=== PATIENT | female | born 1990 | race American Indian/Alaskan Native ===

== ENCOUNTER 2018-05-06 12:46 | Outpatient (CLI) | payer MEDICAID ==
[2018-05-06 13:44] LABS: Bilirubin,Urine NEG (Negative); Blood,Urine NEG (Negative); Color,Urine Yellow (Yellow); Mucus,Urine 1+ /HPF
[2018-05-06] MEDS ORDERED: LACTATED RINGERS 1,000 ML IV ONE ×2 (13:54→15:57)
[2018-05-06] MEDS ORDERED: BRETHINE SUB-Q ONE (14:57)
[2018-05-06 16:32] VITALS: BP 121/57
== END 2018-05-06 17:38 | disposition home or self-care (01) ==
LOC: TRG 12:46
PROVIDERS: ATTEND Obstetrics & Gynecology
DX: O47.03 False labor before 37 completed weeks of gestation, third trimester (principal); Z3A.34 34 weeks gestation of pregnancy
CPT/HCPCS: 59025; 81001; 96360; 96361; J7120

== ENCOUNTER 2018-05-27 07:47 | Outpatient (CLI) | payer MEDICAID ==
[2018-05-27 08:45] VITALS: BP 116/66
== END 2018-05-27 11:49 | disposition home or self-care (01) ==
LOC: TRG 07:47
PROVIDERS: ATTEND Obstetrics & Gynecology
DX: O47.03 False labor before 37 completed weeks of gestation, third trimester (principal); Z3A.37 37 weeks gestation of pregnancy
CPT/HCPCS: 59025

== ENCOUNTER 2018-06-03 16:10 | Inpatient (IN) | payer MEDICAID ==
[2018-06-03 14:04] LABS: Hematocrit 29.7 % (30.3-42.9); Hemoglobin 9.5 gm/dl (10.1-14.3); Mean Corpuscular HGB Conc 32 % (30-34); Platelet Count 253 K/mm3 (140-440); Red Blood Count 4.37 M/mm3 (3.65-5.03); Red Cell Distribution Width 17.7 % (13.2-15.2)
[2018-06-03 14:05] LABS: Mean Corpuscular Hemoglobin 22 pg (28-32); Mean Corpuscular Volume 68 fl (79-97)
[2018-06-03 15:38] LABS: Amphetamine Screen,Urine PRESUMPTIVE NEGATIVE; Benzodiazepines Screen,Urine PRESUMPTIVE NEGATIVE; Cannabinoid Screen,Urine PRESUMPTIVE NEGATIVE; Cocaine Screen,Urine PRESUMPTIVE NEGATIVE; Methadone Screen,Urine PRESUMPTIVE NEGATIVE; Opiate Screen,Urine PRESUMPTIVE NEGATIVE
[~2018-06-03 16:10] MED LIST: LACTATED RINGERS 1,000 ML IV ONE; LACTATED RINGERS 1,000 ML ONE; TYLENOL PO ONE
[2018-06-03] MEDS ORDERED: BENADRYL PO PRN (20:39)
[2018-06-03] MEDS ORDERED: ZOFRAN IV PRN (20:39)
[2018-06-03] MEDS ORDERED: DEEP SEA NS PRN (20:39)
[2018-06-03] MEDS ORDERED: COLACE PO PRN (20:39)
[2018-06-03] MEDS ORDERED: TYLENOL PO PRN (20:39)
[2018-06-03 21:01] LABS: Bacteria,Urine 1+ /HPF (Negative); Bilirubin,Urine NEG (Negative); Blood,Urine NEG (Negative); Color,Urine Yellow (Yellow); Mucus,Urine FEW /HPF; Protein,Urine <15 mg/dL mg/dL (Negative)
[2018-06-03] MEDS ORDERED: LACTATED RINGERS 1,000 ML IV SCH (22:00)
--- NOTE | 2018-06-03 22:33 | Ultrasound Report ---
FINAL REPORT PROCEDURE: US OB FOLLOW UP TECHNIQUE: Real-time transabdominal sonography of the uterus, placenta, amniotic fluid, adnexa, and fetus was performed with image documentation. Measurements were obtained to determine age/size. M-mode Doppler was used to document heartbeat. HISTORY: IUP at 38 wks, fever COMPARISON: No prior studies are available for comparison. FINDINGS: GENERAL: IUP: Single living intrauterine . Position: Cephalic Placental position: Anterior, without previa. Amniotic fluid volume: Normal. MATERNAL: Uterus: Within normal limits. FETUS: Heart rate and rhythm: 153 BPM, regular. MEASUREMENTS: BPD: 9.1 cm, 36 weeks 6 days HC: 33.6 cm, 38 weeks 3 days AC: 34.5 cm, 38 weeks 3 days FL: 7.1 cm, 36 weeks 3 days. Mean Gestational Age (composite criteria): 37 weeks 4 days Estimated Weight: 3309 grams. Estimated Due Date : June 20, 2018 IMPRESSION: Single intrauterine gestation at 37 weeks 4 days. Estimated due date: June 20, 2018.
--- NOTE | 2018-06-03 22:34 | Ultrasound Report ---
FINAL REPORT PROCEDURE: US OB BPP WO NON-STRESS TECHNIQUE: Sonographic evaluation for breathing, movement, tone, and amniotic fluid volume was performed. CPT 61328 HISTORY: IUP at 38 wks, well being, COMPARISON: No prior studies are available for comparison. FINDINGS: Amniotic fluid volume: Normal-score 2. At least one vertical pocket > 2 cm or more in vertical axis. breathing: Normal-score 2. movement: Normal-score 2. tone: Normal. Score: 8 of 8. IMPRESSION: Normal biophysical profile.
[2018-06-04] MEDS ORDERED: DIFLUCAN PO ONE (06:10)
--- NOTE | 2018-06-04 07:12 | History and Physical Report ---
History of Present Illness Date of examination: 06/04/18 Date of admission: 06/03/18 20:40 History of present illness: 27 yo LMP EDC 06/13/18 @ 38.5 weeks gestation presented to triage with c/o fever and chills at home. Voiced good FM, denies vaginal bleeding, abd pain, recent illness or sickness in household or LOF. On admit was noted to have maternal fever of 101.6 with tachycardia of 180's with moderate variability. CBC with WBC 13.9, urine drug screen and dip negative. IV hydration and tylenol given. Fever and tachycardia resolved. MD consulted and additional orders given including 23hr OB, chest X-ray, and blood cultures. First trimester entry into care at 12 weeks. course complicated by eczema with topical steroids, +BV with treatment, ecoli UTI with macrobid 100mg BID with negative ANASTASIA and limited anatomical survey with repeat scan WNL. GBS positive. Has remained afebrile and category 1 tracing throughout night and this am. Experiencing irregular contractions. SVE per RN. /70/-3, GBS positive. 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: abnormal PAP smear (03/2012 with high risk HPV) Family/Genetic History: diabetes, hypertension Social history: lives with family - Obstetrical History Expected Date of Delivery: 06/13/18 Actual Gestation: 38 Week(s) 5 Day(s) : 2 Para: 1 (41 week 2011 6-10oz female) Medications and Allergies Allergies Allergy/AdvReac Type Severity Reaction Status Date / Time No Known Allergies Allergy Unverified 05/06/18 12:53 Home Medications Medication Instructions Recorded Confirmed Last Taken Type Ferrous Sulfate [Feosol 325 MG tab] 1 tab PO BID 05/06/18 06/04/18 05/05/18 History Pnv No.95/Ferrous Fum/Folic AC 1 each PO DAILY 05/06/18 06/04/18 05/05/18 History [Prenavite Tablet] Active Meds: Active Medications Acetaminophen (Tylenol) 650 mg PO Q4H PRN PRN Reason: Pain MILD(1-3)/Fever >100.5/WAGNER Last Admin: 06/04/18 01:48 Dose: 650 mg Diphenhydramine HCl (Benadryl) 25 mg PO Q6H PRN PRN Reason: Itching Docusate Sodium (Colace) 100 mg PO Q12H PRN PRN Reason: Constipation Lactated Ringer's (Lactated Ringers) 1,000 mls @ 125 mls/hr IV DIRECT RAIZA Last Admin: 06/04/18 05:38 Dose: 125 mls/hr Ampicillin Sodium (Polycillin/Ns 2 Gm/100 Ml) 2 gm in 100 mls @ 100 mls/hr IV ONCE RAIZA; Protocol Ampicillin Sodium (Ampicillin/Ns 1 Gm/50 Ml) 1 gm in 50 mls @ 100 mls/hr IV Q4HR [facility]; Protocol Multivitamins/Iron/Calcium ( Vitamin) 1 each PO QDAY [facility] Ondansetron HCl (Zofran) 4 mg IV Q6H PRN PRN Reason: Nausea And Vomiting Sodium Chloride (Deep Sea) 2 spray NS Q4H PRN PRN Reason: Congestion Review of Systems All systems: negative Constitutional: fever, chills, sweats, malaise Gastrointestinal: no abdominal pain Genitourinary: normal appearance, no vaginal bleeding, no leakage of fluid, no genital sores, no contractions Rectal Exam: deferred - Vital Signs Vital signs: Vital Signs Temp Pulse Resp BP Pulse Ox 101.6 F H 122 H 20 105/58 100 06/03/18 13:25 06/03/18 13:25 06/03/18 13:25 06/03/18 13:25 06/03/18 13:25 Temp Pulse Resp BP Pulse Ox 99.8 F H 113 H 18 93/52 99 06/04/18 02:16 06/04/18 02:14 06/04/18 02:16 06/04/18 02:14 06/03/18 14:36 - Physical Exam Breasts: Positive: deferred Abdomen: Positive: normal appearance, soft. Negative: tenderness Vagina: Positive: normal moisture Uterus: Positive: normal size Anus/Rectum: Positive: normal perianal skin - Obstetrical FHR: category 1 Uterine Contraction Monitor Mode: External Cervical Dilatation: 3 (RN) station: -2 Uterine Contraction Frequency (min): 5-10 Uterine Contraction Pattern: Irregular Uterine Tone Measurement Phase: Resting Uterine Contraction Intensity: Mild Results Result Diagrams: 06/03/18 13:30 Abnormal lab results 06/03/18 06/03/18 Range/Units 13:30 20:38 WBC 13.9 H (4.5-11.0) K/mm3 Hgb 9.5 L (10.1-14.3) gm/dl Hct 29.7 L (30.3-42.9) % MCV 68 L (79-97) fl MCH 22 L (28-32) pg RDW 17.7 H (13.2-15.2) % Urine WBC (Auto) 8.0 H (0.0-6.0) /HPF All other labs normal. Assessment and Plan O: recent temp 99.8 A: IUP at term S/P resolved maternal fever and tachycardia Category 1 tracing Anemia GBS positive Active Labor P: MD consult Amp/Gent as ordered Augmentation
[2018-06-04] MEDS ORDERED: GARAMYCIN IV SCH (07:30)
[2018-06-04] MEDS ORDERED: POLYCILLIN/NS 2 GM/100 ML 2 GM/100 ML BAG IV SCH (08:00)
[2018-06-04] MEDS ORDERED: SUBLIMAZE IV PRN (08:00)
[2018-06-04] MEDS ORDERED: STADOL IV PRN (08:00)
[2018-06-04] MEDS ORDERED: PITOCin/NS 30 UNIT/500ML 30 UNITS/500 ML BAG IV SCH (09:30)
[2018-06-04] MEDS: GARAMYCIN/NS 120MG/100ML 120 MG/100 ML BAG IV SCH ×2 (09:40→18:00)
[2018-06-04] MEDS ORDERED: PRENATAL VITAMIN PO SCH (10:00)
[2018-06-04] MEDS ORDERED: TYLENOL PO ONE (10:53)
[2018-06-04] MEDS: AMPICILLIN/NS 1 GM/50 ML 1 GM/50 ML BAG IV SCH ×2 (13:12→16:13)
--- NOTE | 2018-06-04 13:41 | Progress Note ---
Assessment and Plan O: 100.9 @ 1227 Maternal pulse 103 A: IUP at term Category 1 tracing Maternal Temp Latent Labor GBS positive P: Tylenol prn IV bolus Close observation Subjective - Subjective Interval history: 27 yo LMP EDC 06/13/18 @ 38.5 weeks gestation presented to triage with c/o fever and chills at home. Voiced good FM, denies vaginal bleeding, abd pain, recent illness or sickness in household or LOF. On admit was noted to have maternal fever of 101.6 with tachycardia of 180's with moderate variability. CBC with WBC 13.9, urine drug screen and dip negative. IV hydration and tylenol given. Fever and tachycardia resolved. MD consulted and additional orders given including 23hr OB, chest X-ray, and blood cultures. First trimester entry into care at 12 weeks. course complicated by eczema with topical steroids, +BV with treatment, ecoli UTI with macrobid 100mg BID with negative ANASTASIA and limited anatomical survey with repeat scan WNL. GBS positive. Has remained afebrile and category 1 tracing throughout night and this am. Experiencing irregular contractions. SVE per RN. 4/70/-3, GBS positive. Patient reports: movement normal, contractions, no new complaints, no loss of fluid, no vaginal bleeding Objective - Vital Signs Vital Signs: Vital Signs - 12hr 06/04/18 06/04/18 06/04/18 01:48 02:14 02:16 Temperature 99.8 F H Pulse Rate 113 H Respiratory 16 18 Rate Blood Pressure 93/52 O2 Sat by Pulse Oximetry 06/04/18 06/04/18 06/04/18 07:25 07:31 09:53 Temperature 98.6 F Pulse Rate 97 H 96 H Respiratory Rate Blood Pressure 118/72 126/70 O2 Sat by Pulse Oximetry 06/04/18 06/04/18 06/04/18 10:24 10:43 11:10 Temperature 99.9 F H Pulse Rate 111 H 103 H Respiratory Rate Blood Pressure 129/71 O2 Sat by Pulse 99 Oximetry 06/04/18 06/04/18 06/04/18 11:15 11:20 11:23 Temperature Pulse Rate 104 H 112 H 116 H Respiratory Rate Blood Pressure 109/58 O2 Sat by Pulse 100 90 Oximetry 06/04/18 06/04/18 06/04/18 11:25 11:28 11:30 Temperature Pulse Rate 114 H 111 H 104 H Respiratory Rate Blood Pressure O2 Sat by Pulse 100 93 89 Oximetry 06/04/18 06/04/18 06/04/18 11:35 11:40 11:45 Temperature Pulse Rate 114 H 109 H 116 H Respiratory Rate Blood Pressure O2 Sat by Pulse 76 L 100 100 Oximetry 06/04/18 06/04/18 06/04/18 11:50 11:53 11:55 Temperature Pulse Rate 121 H 116 H 120 H Respiratory Rate Blood Pressure 112/59 O2 Sat by Pulse 100 98 Oximetry 06/04/18 06/04/18 06/04/18 12:00 12:05 12:10 Temperature Pulse Rate 111 H 118 H 117 H Respiratory Rate Blood Pressure O2 Sat by Pulse 99 99 99 Oximetry 06/04/18 06/04/18 06/04/18 12:15 12:20 12:23 Temperature Pulse Rate 113 H 99 H 116 H Respiratory Rate Blood Pressure 119/67 O2 Sat by Pulse 99 100 Oximetry 06/04/18 06/04/18 06/04/18 12:25 12:27 12:30 Temperature 100.9 F H Pulse Rate 99 H 103 H Respiratory Rate Blood Pressure O2 Sat by Pulse 99 99 Oximetry 06/04/18 06/04/18 06/04/18 12:35 12:40 12:45 Temperature Pulse Rate 116 H 103 H 104 H Respiratory Rate Blood Pressure O2 Sat by Pulse 99 99 97 Oximetry 06/04/18 06/04/18 06/04/18 12:50 12:53 12:55 Temperature Pulse Rate 132 H 105 H 118 H Respiratory Rate Blood Pressure 120/57 O2 Sat by Pulse 99 100 Oximetry 06/04/18 06/04/18 06/04/18 13:00 13:05 13:10 Temperature Pulse Rate 120 H 105 H 116 H Respiratory Rate Blood Pressure O2 Sat by Pulse 98 98 99 Oximetry 06/04/18 06/04/18 06/04/18 13:15 13:20 13:23 Temperature Pulse Rate 101 H 103 H 86 Respiratory Rate Blood Pressure 128/59 O2 Sat by Pulse 98 97 Oximetry 06/04/18 06/04/18 06/04/18 13:25 13:30 13:35 Temperature Pulse Rate 92 H 89 98 H Respiratory Rate Blood Pressure O2 Sat by Pulse 97 98 99 Oximetry - Exam Breasts: deferred Abdomen: Present: normal appearance, soft. Absent: distention, tenderness FHR: category 2 FHR comments: 160 moderate variability Uterine Contraction Monitor Mode: External Cervical Dilatation: 3 Cervical Effacement Percentage: 50 station: -2 Uterine Contraction Frequency (min): 3 Uterine Contraction Duration: 60-80 Uterine Contraction Pattern: Regular Uterine Tone Measurement Phase: Resting Uterine Contraction Intensity: Strong/Firm Extremities: normal - Labs Labs: Abnormal Labs 06/03/18 06/03/18 13:30 20:38 WBC 13.9 H Hgb 9.5 L Hct 29.7 L MCV 68 L MCH 22 L RDW 17.7 H Urine WBC (Auto) 8.0 H Laboratory Results - last 24 hr 06/03/18 06/03/18 06/03/18 13:30 15:00 20:38 WBC 13.9 H RBC 4.37 Hgb 9.5 L Hct 29.7 L MCV 68 L MCH 22 L MCHC 32 RDW 17.7 H Plt Count 253 Urine Color Yellow Urine Turbidity Slightly-cloudy Urine pH 7.0 Ur Specific [place] 1.017 Urine Protein <15 mg/dl Urine Glucose (UA) Neg Urine Ketones Neg Urine Blood Neg Urine Nitrite Neg Urine Bilirubin Neg Urine Urobilinogen 4.0 Ur Leukocyte Esterase Lg Urine WBC (Auto) 8.0 H Urine RBC (Auto) 5.0 U Epithel Cells (Auto) 4.0 Urine Bacteria (Auto) 1+ Urine Mucus Few Urine Yeast (Budding) Few Urine Opiates Screen Presumptive negative Urine Methadone Screen Presumptive negative Ur Barbiturates Screen Presumptive negative Ur Phencyclidine Scrn Presumptive negative Ur Amphetamines Screen Presumptive negative U Benzodiazepines Scrn Presumptive negative Urine Cocaine Screen Presumptive negative U Marijuana (THC) Screen Presumptive negative Drugs of Abuse Note Disclamer Blood Type Antibody Screen 06/03/18 21:47 WBC RBC Hgb Hct MCV MCH MCHC RDW Plt Count Urine Color Urine Turbidity Urine pH Ur Specific [place] Urine Protein Urine Glucose (UA) Urine Ketones Urine Blood Urine Nitrite Urine Bilirubin Urine Urobilinogen Ur Leukocyte Esterase Urine WBC (Auto) Urine RBC (Auto) U Epithel Cells (Auto) Urine Bacteria (Auto) Urine Mucus Urine Yeast (Budding) Urine Opiates Screen Urine Methadone Screen Ur Barbiturates Screen Ur Phencyclidine Scrn Ur Amphetamines Screen U Benzodiazepines Scrn Urine Cocaine Screen U Marijuana (THC) Screen Drugs of Abuse Note Blood Type A POSITIVE Antibody Screen Negative
[2018-06-04] MEDS ORDERED: METHERGINE IM ONE ×2 (14:20→18:37)
[2018-06-04] MEDS ORDERED: CYTOTEC PR ONE (14:21)
[2018-06-04] MEDS ORDERED: NARCAN 2 MG/2 ML IV PRN (15:36)
--- NOTE | 2018-06-04 15:36 | Anesthesia Consultation ---
Anesthesia Consult and Med Hx Date of service: 06/04/18 - Airway Anesthetic Teeth Evaluation: Good ROM Head & Neck: Adequate Mental/Hyoid Distance: Adequate Mallampati Class: Class II Intubation Access Assessment: Probably Good - Pre-Operative Health Status ASA Pre-Surgery Classification: ASA2 Proposed Anesthetic Plan: Epidural, Spinal - Pulmonary Hx Asthma: No - Cardiovascular System Hx Hypertension: No - Central Nervous System Hx Seizures: No Hx Psychiatric Problems: No - Endocrine Hx Renal Disease: No Hx Hypothyroidism: No Hx Hyperthyroidism: No - Hematic Hx Anemia: Yes Hx Sickle Cell Disease: No - Other Systems Hx Alcohol Use: No
[2018-06-04] MEDS ORDERED: fentaNYL-BUPIV 2 MCG/ML-0.125% 200 MCG/100 ML BAG EPIDURAL SCH (16:00)
[2018-06-04] MEDS ORDERED: XYLOCAINE MPF 2% ONE (17:49)
[2018-06-04] MEDS ORDERED: PITOCin/NS 20 UNIT/1000ML DRIP 20,000 MILLIUNITS/1,000 ML BAG IV ONE (18:34)
--- NOTE | 2018-06-04 19:01 | Procedure Note ---
OB Delivery Note - Delivery Date of Delivery: 06/04/18 Surgeon: CHARMAINE RICHARD Estimated blood loss: 300cc - Vaginal Delivery presentation: vertex Delivery position: OA Intrapartum events: PROM->1hr before delivery, mult.variable deceleratio Delivery induction: none Delivery augmentation: rupture of membranes, pitocin Delivery monitor: internal FHT, internal uterine Route of delivery: Delivery placenta: spontaneous Delivery cord: nuchal cord (tight, delivered through ), 3 umbilical vessels Episiotomy: none Delivery laceration: 1st degree, other (Bilateral periurethral ) Delivery repair: vicryl Anesthesia: epidural - Infant A at 1 minute: 8 at 5 minutes: 9 Gender: Male (3040g (6lb 11oz) @ 1839 pm)
[2018-06-04] MEDS ORDERED: LANSINOH TP PRN ×2 (19:35)
[2018-06-04] MEDS ORDERED: BENADRYL PO PRN (19:35)
[2018-06-04] MEDS ORDERED: MILK OF MAGNESIA PO PRN (19:35)
[2018-06-04] MEDS ORDERED: DERMOPLAST TP PRN (19:35)
[2018-06-04] MEDS ORDERED: ZOFRAN IV PRN (19:35)
[2018-06-04] MEDS ORDERED: PHENERGAN PO PRN (19:35)
[2018-06-04] MEDS ORDERED: DULCOLAX PR PRN (19:35)
[2018-06-04] MEDS ORDERED: TUCKS PAD TP PRN (19:35)
[2018-06-04] MEDS ORDERED: PHENERGAN PR PRN (19:35)
[2018-06-04] MEDS ORDERED: TYLENOL PO PRN (19:35)
[2018-06-04] MEDS ORDERED: SODIUM CHLORIDE FLUSH SYRINGE 10 ML IV SCH (20:00)
[2018-06-04] MEDS ORDERED: PITOCin/NS 20 UNIT/1000ML DRIP 20 UNITS/1,000 ML BAG IV SCH (20:00)
[2018-06-04] MEDS: MOTRIN PO SCH (20:39)
[2018-06-04] MEDS: FEOSOL PO SCH (22:00)
--- NOTE | 2018-06-04 23:41 | XRay Report ---
FINAL REPORT PROCEDURE: XR CHEST 1V AP TECHNIQUE: Chest radiograph anteroposterior view. CPT 23510 HISTORY: Fever COMPARISON: No prior studies are available for comparison. FINDINGS: Heart: Normal. Mediastinum/Vessels: Normal. Lungs/Pleural space: Normal. Bony thorax: No acute osseous abnormality. Life support devices: None. IMPRESSION: No acute cardiopulmonary abnormality.
[2018-06-05] MEDS ORDERED: NACL 0.9% 1000 ML 1,000 ML IV ONE (04:32)
[2018-06-05] MEDS: MOTRIN PO SCH ×2 (04:46→19:39)
[2018-06-05] MEDS ORDERED: NACL 0.9% 250ML 250 ML IV ONE (04:49)
[2018-06-05] MEDS: GARAMYCIN/NS 120MG/100ML 120 MG/100 ML BAG IV SCH ×3 (04:53→20:55)
[2018-06-05] MEDS: AMPICILLIN/NS 1 GM/50 ML 1 GM/50 ML BAG IV SCH ×4 (05:38→19:42)
[2018-06-05 07:18] LABS: Hemoglobin 7.6 gm/dl (10.1-14.3)
--- NOTE | 2018-06-05 08:18 | Progress Note ---
Assessment and Plan A/P PPD#1 s/p fever tmax 0 last night added clinda to complete tx for plausible chorio close monitor of vs UTI ( should be covered by current abx therapy) cxr neg await cultures pending Subjective - Subjective Date of service: 06/05/18 Principal diagnosis: s/p , chorio Patient reports: appetite normal, voiding normally, pain well controlled, flatus , ambulating normally [place]: doing well Objective - Vital Signs Latest vital signs: Vital Signs Temp Pulse Resp BP BP Pulse Ox 06/05/18 04:30 98.0 F 81 16 108/64 98 06/05/18 00:01 98.3 F 79 18 99/42 98 06/04/18 21:12 97.9 F 142 H 20 125/69 95 06/04/18 20:40 102.7 F H 06/04/18 20:32 121 H 96 06/04/18 20:29 109 H 89 06/04/18 20:27 116 H 99 06/04/18 20:22 92 H 99 06/04/18 20:17 109 H 99 06/04/18 20:12 111 H 99 06/04/18 20:11 126 H 136/74 06/04/18 19:41 125 H 122/69 06/04/18 19:30 99.3 F 18 06/04/18 18:38 98 H 100 06/04/18 18:36 90 82 L 06/04/18 18:33 91 H 100 06/04/18 18:28 91 H 100 06/04/18 18:24 62 62 L 06/04/18 18:23 89 100 06/04/18 18:18 88 100 06/04/18 18:13 94 H 100 06/04/18 18:08 116 H 98 06/04/18 18:06 111 H 94 06/04/18 18:03 116 H 94 06/04/18 17:59 92 H 92 06/04/18 17:58 110 H 100 06/04/18 17:54 99 H 130/65 06/04/18 17:53 102 H 100 06/04/18 17:52 107 H 59 L 06/04/18 17:48 92 H 100 06/04/18 17:43 82 100 06/04/18 17:38 79 81 L 06/04/18 17:33 86 100 06/04/18 17:28 102 H 100 06/04/18 17:24 79 129/66 06/04/18 17:20 108 H 100 06/04/18 17:15 99 H 100 06/04/18 17:10 139 H 100 06/04/18 17:05 65 100 06/04/18 17:00 77 100 06/04/18 16:55 84 100 06/04/18 16:54 76 122/60 06/04/18 16:50 91 H 100 06/04/18 16:45 67 100 06/04/18 16:40 71 100 06/04/18 16:35 73 100 06/04/18 16:30 89 100 06/04/18 16:25 84 117/59 100 06/04/18 16:20 76 100 06/04/18 16:16 74 93 06/04/18 16:15 68 100 06/04/18 16:10 83 100 06/04/18 16:05 85 100 06/04/18 16:00 106 H 97 06/04/18 15:58 95 H 135/59 06/04/18 15:56 64 81 L 06/04/18 15:55 103 H 100 06/04/18 15:54 89 113/53 06/04/18 15:50 137 H 100 06/04/18 15:49 98.7 F 06/04/18 15:45 114 H 100 06/04/18 15:43 119 H 74 L 06/04/18 15:40 84 99 06/04/18 15:35 85 97 06/04/18 15:30 88 96 06/04/18 15:25 99 H 96 06/04/18 15:24 80 115/57 94 06/04/18 15:20 82 94 06/04/18 15:16 82 94 06/04/18 15:15 76 97 06/04/18 15:10 96 H 96 06/04/18 15:05 93 H 95 06/04/18 15:01 99 H 93 06/04/18 15:00 89 96 06/04/18 14:55 94 H 80/52 96 06/04/18 14:54 80 81 L 06/04/18 14:50 99 H 98 06/04/18 14:45 93 H 91 06/04/18 14:40 88 99 09/25/18 14:35 90 99 06/04/18 14:30 100 H 99 06/04/18 14:27 105 H 94 06/04/18 14:25 101 H 116/59 79 L 06/04/18 14:21 100 H 77 L 06/04/18 14:20 98 H 98 06/04/18 14:15 98 H 99 06/04/18 14:14 96 H 93 06/04/18 14:10 92 H 99 06/04/18 14:05 91 H 99 06/04/18 14:00 96 H 99 06/04/18 13:55 88 88 06/04/18 13:54 96 H 104/68 06/04/18 13:50 98 H 99 06/04/18 13:45 89 99 06/04/18 13:40 96 H 99 06/04/18 13:35 98 H 99 06/04/18 13:30 89 98 06/04/18 13:25 92 H 97 06/04/18 13:23 86 128/59 06/04/18 13:20 103 H 97 06/04/18 13:15 101 H 98 06/04/18 13:10 116 H 99 06/04/18 13:05 105 H 98 06/04/18 13:00 120 H 98 06/04/18 12:55 118 H 100 06/04/18 12:53 105 H 120/57 06/04/18 12:50 132 H 99 06/04/18 12:45 104 H 97 06/04/18 12:40 103 H 99 06/04/18 12:35 116 H 99 06/04/18 12:30 103 H 99 06/04/18 12:27 100.9 F H 06/04/18 12:25 99 H 99 06/04/18 12:23 116 H 119/67 06/04/18 12:20 99 H 100 06/04/18 12:15 113 H 99 06/04/18 12:10 117 H 99 06/04/18 12:05 118 H 99 06/04/18 12:00 111 H 99 06/04/18 11:55 120 H 98 06/04/18 11:53 116 H 112/59 06/04/18 11:50 121 H 100 06/04/18 11:45 116 H 100 06/04/18 11:40 109 H 100 06/04/18 11:35 114 H 76 L 06/04/18 11:30 104 H 89 06/04/18 11:28 111 H 93 06/04/18 11:25 114 H 100 06/04/18 11:23 116 H 109/58 06/04/18 11:20 112 H 90 06/04/18 11:15 104 H 100 06/04/18 11:10 103 H 99 06/04/18 10:43 99.9 F H 06/04/18 10:24 111 H 129/71 06/04/18 09:53 96 H 126/70 Intake and Output 06/04/18 06/05/18 06/05/18 23:59 07:59 15:59 Intake Total 150 Output Total 400 1400 Balance -250 -1400 Intake: IV 150 AMPICILLIN/NS 1 GM/50 ML 50 1 gm In 50 ml @ 100 mls/ hr IV Q4HR [facility] Rx#: [id number] GARAMYCIN/NS 120MG/100ML 100 120 mg In 100 ml @ 200 mls/hr IV Q8H [facility] Rx#: [id number] Output: Urine 400 1400 Void 400 1400 Other: Total, Output Amount 400 150 # Voids Void 1 1 Estimated Blood Loss 300 - Exam Breasts: Present: normal Cardiovascular: Present: Regular rate, Normal S1 Lungs: Present: Clear to auscultation, Normal air movement Abdomen: Present: normal appearance, soft, normal bowel sounds. Absent: distention, tenderness, guarding Vulva: both: normal Uterus: Present: firm, fundal height below umbilicus. Absent: bogginess, tenderness Extremities: Present: normal Deep Tendon Reflex Grade: Normal +2 Incision: Present: normal - Labs Labs: Abnormal lab results 06/05/18 Range/Units 07:04 Hgb 7.6 L (10.1-14.3) gm/dl Hct 24.0 L (30.3-42.9) %
[2018-06-05] MEDS: FEOSOL PO SCH ×2 (09:48→21:59)
[2018-06-05] MEDS: NORCO 5/325 PO PRN ×2 (09:54→19:38)
[2018-06-05] MEDS ORDERED: BOOSTRIX IM ONE (12:00)
[2018-06-05] MEDS: CLEOCIN 900 MG/50 mL 900 MG/50 ML BAG IV SCH ×2 (12:13→21:59)
[2018-06-05] MEDS ORDERED: M-M-R II VACCINE SUB-Q ONE (19:05)
[2018-06-06] MEDS: AMPICILLIN/NS 1 GM/50 ML 1 GM/50 ML BAG IV SCH ×2 (00:02→04:09)
[2018-06-06] MEDS: GARAMYCIN/NS 120MG/100ML 120 MG/100 ML BAG IV SCH (05:13)
[2018-06-06] MEDS: CLEOCIN 900 MG/50 mL 900 MG/50 ML BAG IV SCH (05:58)
[2018-06-06] MEDS: MOTRIN PO SCH ×3 (06:44→22:15)
--- NOTE | 2018-06-06 08:45 | Progress Note ---
Assessment and Plan O: VSS AF AF x 48 hrs A: Stable PP Day 1 S/P Maternal Temp P: D/C home Subjective - Subjective Date of service: 06/06/18 Principal diagnosis: s/p , chorio Interval history: 27 yo LMP EDC 06/13/18 @ 38.5 weeks gestation presented to triage with c/o fever and chills at home. Voiced good FM, denies vaginal bleeding, abd pain, recent illness or sickness in household or LOF. On admit was noted to have maternal fever of 101.6 with tachycardia of 180's with moderate variability. CBC with WBC 13.9, urine drug screen and dip negative. IV hydration and tylenol given. Fever and tachycardia resolved. MD consulted and additional orders given including 23hr OB, chest X-ray, and blood cultures. First trimester entry into care at 12 weeks. course complicated by eczema with topical steroids, +BV with treatment, ecoli UTI with macrobid 100mg BID with negative ANASTASIA and limited anatomical survey with repeat scan WNL. GBS positive. Has remained afebrile and category 1 tracing throughout night and this am. Experiencing irregular contractions. SVE per RN. 4/70/-3, GBS positive. Patient reports: appetite normal, voiding normally, pain well controlled, flatus , ambulating normally : doing well, nursing well Objective - Vital Signs Latest vital signs: Vital Signs Temp Pulse Resp BP Pulse Ox 06/06/18 06:16 98.2 F 66 17 122/63 100 06/06/18 00:00 97.7 F 68 18 103/59 100 06/05/18 23:00 98.1 F 97 H 17 143/81 100 06/05/18 20:00 98.2 F 74 20 99/51 100 06/05/18 16:58 98.2 F 86 18 110/69 06/05/18 13:28 98.8 F 80 18 108/62 06/05/18 09:54 20 06/05/18 09:12 98.2 F 85 18 103/63 Intake and Output 06/05/18 06/06/18 06/06/18 22:59 06:59 14:59 Intake Total 720 50 Balance 720 50 Intake: IV 400 50 AMPICILLIN/NS 1 GM/50 ML 100 50 1 gm In 50 ml @ 100 mls/ hr IV Q4HR [facility] Rx#: [id number] CLEOCIN 900 MG/50 mL 900 100 mg In 50 ml @ 100 mls/hr IV Q8HR [facility] Rx#:[id number] GARAMYCIN/NS 120MG/100ML 200 120 mg In 100 ml @ 200 mls/hr IV Q8H [facility] Rx#: [id number] Oral 320 Other: Total, Intake Amount 320 # Voids Void 3 - Exam Breasts: Present: deferred Lungs: Present: Clear to auscultation Abdomen: Present: normal appearance, soft. Absent: distention, tenderness Uterus: Present: normal, firm, fundal height below umbilicus. Absent: bogginess , tenderness Extremities: Present: normal
--- NOTE | 2018-06-06 08:48 | Discharge Summary ---
Providers - Providers Date of Admission: 06/03/18 20:40 Date of discharge: 06/06/18 Attending physician: CHARMAINE RICHARD 06/04/18 19:35 Consult to Behavioral Therapy Coordinator [CONS] Routine Reason For Exam: assistance with , SNS Primary care physician: AUSTIN GARY MD Hospitalization Reason for admission: induction of labor, IUP at term, other (maternal temp) Delivery: Episiotomy: none complications: none Discharge diagnosis: IUP at term delivered [place] baby: female Condition at discharge: Good Disposition: DC-01 TO HOME OR SELFCARE Plan - Discharge Medications Prescriptions: Ferrous Sulfate [Feosol 325 MG tab] 325 mg PO BID #60 tablet Ibuprofen [Motrin 600 MG tab] 600 mg PO Q6HR PRN #30 tablet PRN Reason: Pain , Severe (7-10) - Provider Discharge Summary Activity: routine, no sex for 6 weeks, no heavy lifting 4 weeks, no strenuous exercise Diet: routine Instructions: routine Additional instructions: [] Smoking cessation referral if applicable(refer to patient education folder for contact #) [] Refer to [facility]'s [facility] Booklet Call your doctor immediately for: * Fever > 100.5 * Heavy vaginal bleeding ( >1 pad per hour) * Severe persistent headache * Shortness of breath * Reddened, hot, painful area to leg or breast * Drainage or odor from incision. * Keep incision clean and dry at all times and follow doctor's instructions regarding bathing/showering - Follow up plan Follow up: AUSTIN GARY MD [Primary Care Provider] - (RTO 4 weeks /prn)
[2018-06-06] MEDS: FEOSOL PO SCH ×2 (11:43→22:16)
[2018-06-07 15:33] VITALS: BP 122/68
[2018-06-07] MEDS: MOTRIN PO SCH (16:27)
[2018-06-07] MEDS: FEOSOL PO SCH (16:27)
== END 2018-06-07 14:00 | disposition home or self-care (01) | DRG 774 ==
LOC: TRG 16:10 → LD 19:22 → TRG 20:39 → INTOOBSV 20:40 → LD 20:40 → OBSVTOIN 20:40 → OB 06-04 21:24
PROVIDERS: ADMIT Obstetrics & Gynecology; ATTEND Obstetrics & Gynecology
PROC: 10E0XZZ Delivery of Products of Conception, External Approach (ICD-10-PCS; principal; 2018-06-04)
PROC: 0HQ9XZZ Repair Perineum Skin, External Approach (ICD-10-PCS; 2018-06-04)
PROC: 3E0R3BZ Introduction of Anesthetic Agent into Spinal Canal, Percutaneous Approach (ICD-10-PCS; 2018-06-04)
PROC: 00HU33Z Insertion of Infusion Device into Spinal Canal, Percutaneous Approach (ICD-10-PCS; 2018-06-04)
PROC: 3E0234Z Introduction of Serum, Toxoid and Vaccine into Muscle, Percutaneous Approach (ICD-10-PCS; 2018-06-05)
DX: O99.824 Streptococcus B carrier state complicating childbirth (principal); O75.3 Other infection during labor; Z3A.38 38 weeks gestation of pregnancy; Z37.0 Single live birth; O99.02 Anemia complicating childbirth; D64.9 Anemia, unspecified; O76 Abnormality in fetal heart rate and rhythm complicating labor and delivery; O42.02 Full-term premature rupture of membranes, onset of labor within 24 hours of rupture; O69.81X0 Labor and delivery complicated by cord around neck, without compression, not applicable or unspecified; O71.82 Other specified trauma to perineum and vulva; Z23 Encounter for immunization
CPT/HCPCS: 36415; 71045; 76816; 76819; 80307; 81001; 85014; 85018; 85027; 86850; 86900; 86901; 87040; 87086; 88307; 99211; G0463; J0290; J0595; J1580; J2210; J2405; J2590; J3010; J7030; J7050; J7120